=== PATIENT | female | born 1985 | race Caucasian/White ===

== ENCOUNTER 2017-10-11 13:57 | Emergency (ER) | payer MEDICAID ==
[~2017-10-11] VITALS: Ht 162.6 cm; Wt 78.0 kg
[~2017-10-11 13:57] MED LIST: A/B OTIC15 ML; FERROUS AMMONIU; LAC PO; LEVAQUIN750 MG PO; MOTRIN800 MG PO; VITAMIN C100 M1 PO
[2017-10-11 18:55] VITALS: BP 114/76
== END 2017-10-11 18:53 | disposition home or self-care (01) ==
LOC: ED 13:57
DX: S13.4XXA Sprain of ligaments of cervical spine, initial encounter (principal); S23.3XXA Sprain of ligaments of thoracic spine, initial encounter; F07.81 Postconcussional syndrome; V49.9XXA Car occupant (driver) (passenger) injured in unspecified traffic accident, initial encounter; Y93.89 Activity, other specified; Y99.8 Other external cause status; Y92.89 Other specified places as the place of occurrence of the external cause
CPT/HCPCS: J1885; J2765

== ENCOUNTER 2019-12-07 08:12 | Emergency (ER) | payer MEDICAID ==
[~2019-12-07] VITALS: Ht 162.6 cm; Wt 78.0 kg
[2019-12-07 08:19] VITALS: BP 104/66; Ht 162.6 cm; Wt 78.0 kg
[2019-12-07 10:29] LABS: microscopic required? YES; urine erythrocyte 3+ (NEGATIVE)
== END 2019-12-07 11:00 | disposition left against medical advice (07) ==
LOC: ED 08:12
PROVIDERS: Emergency Medicine
DX: R51 Headache (principal); M54.2 Cervicalgia; M25.551 Pain in right hip; R50.9 Fever, unspecified
CPT/HCPCS: J1885

== ENCOUNTER 2019-12-09 16:01 | Emergency (ER) | payer MEDICAID ==
[~2019-12-09] VITALS: Ht 162.6 cm; Wt 78.5 kg
[2019-12-09 16:09] VITALS: Ht 162.6 cm; Wt 78.5 kg
[2019-12-09 16:50] VITALS: BP 101/60
== END 2019-12-09 16:50 | disposition home or self-care (01) ==
LOC: ED 16:01
DX: H66.91 Otitis media, unspecified, right ear (principal)